=== PATIENT | male | born 1925 | race Caucasian/White ===

== ENCOUNTER → 2016-09-16 | Outpatient (CLI) | payer MEDICARE ==
[~2016-09-16] MED LIST: ERYC250 MG PO; LEVAQUIN PO; TOPROL XL PO; TYLENOL #3 PO; ZOCOR PO
== END | disposition home or self-care (01) ==
LOC: CLAB 15:28
DX: H47.012 Ischemic optic neuropathy, left eye (principal); H47.20 Unspecified optic atrophy; H18.52 Epithelial (juvenile) corneal dystrophy; H35.3121 Nonexudative age-related macular degeneration, left eye, early dry stage; Z96.1 Presence of intraocular lens
CPT/HCPCS: 36415; 85652